=== PATIENT | female | born 1995 | race Caucasian/White ===

== ENCOUNTER → 2024-11-02 10:13 | Outpatient (REF) | payer SELFPAY ==
--- OUTSIDE RECORDS SUMMARY | 2024-09-05 08:00 | XMS_ITS | Encounter Summary ---
Author Organization Healthcare Address [address] [place] [address] Care Team Providers Care Green Promotions Specialist Name Role Phone Karen Lopez APRN Primary Care Provider Encounter Details Date Type Department Care Team (Late st Contact Info) Description 09/05/2024 8:00 AM EDT [facility] [address], [address] [place] [address] Basil Diaz MD [address] [facility] [address] [place] [address] Thyroglossal duct cyst (Primary Dx); Abnormal ultrasound of neck Social History Tobacco Use Types Packs/Day Years Used Date Smoking Tobacco: Never Passive Smoke Exposure: Never Smokeless Tobacco: Never Alcohol Use Standard Drinks/Week Comments Not Currently 0 (1 standard drink = 0.6 oz pur e alcohol) Rare occasion; once a year Humiliation, Afraid, Rape, and Kick questionnair e Answer Date Recorded Within the last year, have y ou been afraid of your partner or ex-partner? No 05/05/2024 Within the last year, have y ou been humiliated or emotionally abused in other ways by your partner or ex-partner? No Within the last year, have y ou been kicked, hit, slapped, or otherwise physically hurt by your partner or ex-partner? No 05/05/2024 Within the last year, have y ou been raped or forced to have any kind of sexual activity by your partner or ex-partner? No 05/05/2024 PHQ-2 Answer Date Recorded Patient Health Questionnaire-2 Score 0 05/24/2024 Hunger Vital Sign Answer Date Recorded Within the past 12 months, y ou worried that your food would run out before you got the money to buy more. Never true 05/05/19 25 Within the past 12 months, t he food you bought just didn't last and you didn't have money to get more. Never true 05/05/2024 PRAPARE - Transportation Answer Date Re corded In the past 12 months, has l ack of transportation kept you from medical appointments or from getting medications? No 04/08 In the past 12 months, has l ack of transportation kept you from meetings, work, or from getting things needed for daily living? No 05/05/2024 Housing Stability Vital Sign Answer Marcos e Recorded In the last 12 months, was t here a time when you were not able to pay the mortgage or rent on time? No 09/07/2023 In the last 12 months, how many places have you lived? 2 09/07/2023 In the last 12 months, was t here a time when you did not have a steady place to sleep or slept in a alf (including now)? No 09/07/2023 PHQ-9 Answer Date Recorded Patient Health Questionnaire-9 Score 0 05/24/2024 Housing Stability Vital Sign Answer Marcos e Recorded In the last 12 months, was t here a time when you were not able to pay the mortgage or rent on time? No 05/05/2024 In the past 12 months, how m any times have you moved where you were living? 0 05/05/2024 At any time in the past 12 m [facility], were you homeless or living in a alf (including now)? No 05/05/2024 CAGE ASSESSMENT Answer Date Recorded Cage unable to access Not on file 08/07/2022 Maximum number of drinks you had on a given occasion in the last month? 0 drinks 08/07/2022 How many alcoholic Beverages do you typically drink in a week? 0 - 7 per week 08/07/2022 Have you ever felt you should CUT down on your d rinking? 0 08/07/2022 Have you been ANNOYED by peo ple criticizing your drinking? 0 08/07/2022 Have you felt GUILTY about your drinking? 0 08/07/2022 Have you had a drink first t jack in the morning ([employer]) to steady your nerves or to get rid of a hangover? 0 08/07/2022 CAGE Questionnaire Score 0 023 Utilities Answer Date Recorded In the past 12 months has th [employer] electric, gas, oil, or water company threatened to shut off services in your home? No 05/05/2024 PHQ-2A Answer Date Recorded Patient Health Questionnaire-2 Score 0 03/10/2023 Comments No Sex and Gender Information Value Date Recorded Sex Assigned at Female 04/09/2021 1:19 PM EST Legal Sex Female 8:38 PM EDT Gender Identity Female 04/09/2021 1:19 PM EST Sexual Orientation Straight 04/09/2021 1: 19 PM EST documented as of this encounter Miscellaneous Notes * Progress Notes - Basil Diaz MD - 09/05/2024 8:00 AM EDT Dear No ref. provider found, I had the pleasure of seeing Ms. Huber Avery in my Head and Neck clinic at the [facility]. As you know, Ms. Huber Avery is a very pleasant 29 y.o. patient who was kindly sent to my clinic in consultation for evaluation and management of her submental mass demonstrated on most recent ultrasound. We discussed at her last visit that her findings were suggestive of a thyroglossal duct cyst and planned for imaging. 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 Today she reports no other significant updates to her personal or health history. She knows that her lesion has not changed. She continues to deny significant significant symptom burden related to this lesion. Recent thyroid function tests were normal. 03/07/2024: Present for follow up 6 days s/p maykel. Overall doing well. Denies dysphonia/dysphagia. Drain remains in place with SS output. 04/18/2023: Presenting to clinic for follow up now 6 weeks s/p maykel. 09/05/2024: Presents to clinic for follow up via telemedicine. Indicates she is overall doing well and has no complaints today. Is happy with the appearance of the neck incision. Radiographs: - CT scan of the neck (09/01/2024): IMPRESSION: Postsurgical changes of thyroglossal duct cyst resection without evidence of residual or recurrent cyst. - CT scan of the chest: . N/A - PET CT scan: . N/A - Ultrasound of the thyroid: In the submental region, at and superior to the hyoid bone in the midline, there is a solid-appearing nodule measuring 2.3 centimeters sagittal x 1.3 centimeter AP x 2.5 cm transverse (series 10). This is not visualized on the prior examination from 02/06/2022 but this same level may not have been imaged on that exam. This is visualized on prior examination from 10/31/2019 (series R4: 3), now appears larger, on the 10/31/2019 exam and measured about 2.0 x 1.1 cm on transverse imaging. I independently reviewed the images and discussed them with the patient. I do agree with the interpretation. Surgeries: - Maykel (03/01/24) Pathology: - (03/01/24) Final Diagnosis A. CYST, MAYKEL PROCEDURE: - THYROGLOSSAL DUCT CYST. Allergies: No Known Allergies Past medical history: As in history of present illness Past Medical History: Diagnosis Date Abnormal Pap smear of cervix 2021 Anxiety 2019 went to ED for a panic attack Cold sore 10/2023 Depression 2017 Encounter for insertion of intrauterine contraceptive device Encounter for insertion of mirena IUD Exercise tolerance finding 02/22/2024 Can climb 2 flights of stairs w/o SOA Morbid obesity with BMI of 50.0-59.9, adult (CMS/HCC) 02/22/2024 Obesity Other chest pain 05/14/2023 Personal history of other complications of , childbirth and the puerperium History of depression Sleep apnea, obstructive Uses CPAP 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 Past surgical history: no pertinent PSHX Past Surgical History: Procedure Laterality Date ROOT CANAL 2010 SKIN BIOPSY UMBILICAL HERNIA REPAIR WISDOM TOOTH EXTRACTION N/A wisdom tooth extraction from [employer] Family history: reviewed and noncontributory Family History Problem Relation Name Age of Onset Rheum arthritis Mother Malgorzata Hypertension Mother Malgorzata Rheumatologic disease Mother Malgorzata Hypertension Father Rob Diabetes Father Rob Stroke Father Rob Depression Sister Jaquelin Avery Depression Sister Guillermina Antunezuitt Depression Maternal Grandmother Ly [place] Heart disease Maternal Grandmother Ly [place] Glaucoma Maternal Grandmother Ly [place] Heart disease Maternal Grandfather Desmond Ingram Diabetes Paternal Grandmother Bri Avery Depression Mother's Sister Marya Jenkins Anxiety disorder Other Cardiac disorder Other Depression Other Diabetes Other Endometriosis Other Hypertension Other Stomach cancer Other Hyperlipidemia Other Cancer Father's Brother Prostate cancer Cancer Mother's Brother Stomach cancer Anesthesia problems Neg Hx Social history: Social Drivers of Health Food Insecurity: No Food Insecurity (05/05/2024) Hunger Vital Sign Worried About Running Out of Food in the Last Year: Never true Ran Out of Food in the Last Year: Never true Alcohol Use: Low Risk (08/07/2022) CAGE ASSESSMENT Cage unable to access: Not on file Cage max number of drinks: 0 drinks Cage Beverages a week: 0 - 7 per week Cage Questionnaire cut down: 0 Cage questionnaire annoyed: 0 Cage questionnaire guilty: 0 Cage questionnaire eye bakery assistant: 0 Cage Overall score: 0 Housing Stability: Low Risk (05/05/2024) Housing Stability Vital Sign Unable to Pay for Housing in the Last Year: No Number of Times Moved in the Last Year: 0 Homeless in the Last Year: No Tobacco Use: Low Risk (06/14/2024) Patient History Smoking Tobacco Use: Never Smokeless Tobacco Use: Never Passive Exposure: Never Recent Concern: Tobacco Use - Medium Risk (05/18/2024) Patient History Smoking Tobacco Use: Never Smokeless Tobacco Use: Never Passive Exposure: Current Transportation Needs: No Transportation Needs (05/05/2024) PRAPARE - Transportation Lack of Transportation (Medical): No Lack of Transportation (Non-Medical): No Depression: Not at risk (05/24/2024) PHQ-2 PHQ-2 Score: 0 Utilities: Not At Risk (05/05/2024) Utilities Threatened with loss of utilities: No Stress: Not on file Intimate Partner Violence: Not At Risk (05/05/2024) Humiliation, Afraid, Rape, and Kick questionnaire Fear of Current or Ex-Partner: No Emotionally Abused: No Physically Abused: No Sexually Abused: No Physical Activity: Not on file Social Connections: Unknown (01/12/2023) Received from [facility] Support Help with Day-to-Day Activities: Not on file Lonely or Isolated: Not on file Financial Resource Strain: Not on file PHYSICAL EXAMINATION: There were no vitals taken for this visit. General: alert and oriented x3; no acute distress Psychiatric evaluation: Normal mood and affect; pleasant and cooperative. Nasal cavity examination: No visible polyps, masses, or purulence Oral cavity examination: The buccal mucosa, lips, gingiva, retromolar trigone, alveolar ridge, floor of mouth, tongue and palate unremarkable. No visible mass lesions. Oropharynx: Tonsils are unremarkable bilaterally. Neck: Neck incision well-healed. Eyes: Extraocular movements are intact bilaterally. Neurological examination: Cranial nerves II-XII are grossly intact. Skin of the neck and face: no evidence of significant rashes, suspicious appearing nevi or other concerning lesions. Endocrine examination: No palpable thyroid nodules or thyromegaly. Salivary: Bilateral parotid and submandibular glands soft and non-tender to palpation; no palpable masses Respiratory: No increased work of breathing, dyspnea, or use of accessory muscles of respiration Cardiovascular: Regular rate and rhythm; no significant clubbing/cyanosis of extremities Pathology: FNA (11/02/2023): Final Diagnosis MIDLINE NECK MASS, SUPERFICIAL FINE NEEDLE ASPIRATION: - INCONCLUSIVE FINDINGS. - CYST CONTENTS. SEE COMMENT. Final path pending IMPRESSION/PLAN: 28 YO CF initially presenting with TGDC s/p excision on 03/01/25. She is overall doing well with most recent CT demonstrating no evidence of recurrence. She will follow up with me in person in 4 month. I discussed those findings with the patient and I answered her questions to the best of my ability.She verbalized understanding and agreement with the plan. I independently reviewed all the records available to me and summarized my findings in this note. *Digital speech recognition software was used to dictate this note and, despite all efforts to proofread, some dictation errors may occur. If you have any questions, please do not hesitate to contactme. Basil Diaz MD, FACS Coater Operator Ins[employer] Board Head & Neck Surgical Oncology, Thyroid/Parathyroid Surgery, Transoral Robotic Surgery, and Microvascular Reconstruction Department of Otolaryngology - Division of Head & Neck Surgery [facility] - Head[facility] Neck[facility] Res[facility] * Progress Notes - Basil Diaz MD - 09/05/2024 8:00 AM EDT Telehealth Statement Patient Verification Patient identity has been confirmed using name and date of ? Yes Authorizations and Agreements/Telemedicine Consent sent and consent confirmed? Yes Patient Location: Home/Other Patient confirms they are physically located in [place]? Yes If the patient is not physically located in [place], the provider has confirmed with [facility] thatthe provider is authorized to provide services in patient's stated location? N/A Provider Location: [facility] facility Audio and video or audio only? Audio only Total visit time: 30 minutes documented in this encounter Plan of Treatment Upcoming Encounters Date Type Department Care Team (Late st Contact Info) Description 11/28/2024 2:20 PM EDT Office Visit [facility] [address] [place] [address] Pastor Hill MD [address] [place] [address] 12/28/2024 11:00 AM EDT Office Visit [facility] [address] [place] [address] Eryn Doshi APRN [address] [place] [address] documented as of this encounter Visit Diagnoses Diagnosis Thyroglossal duct cyst- Primary Congenital anomalies of other endocrine glands Abnormal ultrasound of neck documented in this encounter Additional Health Concerns Assessment Noted Time PHQ-9 Depression Total Score: 0 05/24/19 10:57 AM EST A fall risk assessment has been complete d for the patient 05/10/2024 11:31 AM EST A Body Mass Index follow-up plan has been documented for the patient 06/14/2024 11:25 AM EDT documented as of this encounter Care Teams Green Promotions Specialist Relationship Specialty Start Date End Date Karen Lopez APRN [address] [address] PCP - General Family Medicine 09/05/24 documented as of this encounter
--- OUTSIDE RECORDS SUMMARY | 2024-10-14 14:30 | XMS_ITS | Encounter Summary ---
Author Organization [facility] Address [address] [place] [address] Care Team Providers Care Marine Chronometer Assembler Name Role Phone Karen Lopez APRN Primary Care Provider [phone] Reason for Visit * Reason Comments Contraception IUD exchange * Other Medical (Routine) - Closed Specialty Diagnoses / Procedures Referred By Nithin reina Referred To Contact Diagnoses Encounter for IUD removal and reinsertion Procedures Insert IUD Pina Stewart APRN [address] [facility] [address] [place] [address] Phone: tel: fax: Referral ID Status Reason Start Date Expiration Date Visits Re quested Visits Authorized [id number] Closed 10/06/2024 04/07/2026 1 1 Encounter Details Date Type Department Care Team (Late st Contact Info) Description 10/14/2024 2:30 PM EDT Office Visit Medical Office Building Obstetrics and Gynecology [address] , [address] [place] [address] Pina Stewart APRN [address] [facility] [address] [place] [address] Encounter for IUD removal and reinsertion (Primary Dx) Social History Tobacco Use Types Packs/Day Years Used Date Smoking Tobacco: Never Passive Smoke Exposure: Never Smokeless Tobacco: Never Tobacco Cessation:Counseling Given: No Alcohol Use Standard Drinks/Week Comments Not Currently [...] Date Recorded Patient Health Questionnaire-2 Score 0 10/14/2024 Hunger Vital Sign Answer Date Recorded Within [...] place to sleep or slept in a fdc (including now)? No 09/07/2023 PHQ-9 Answer Date Recorded Patient Health Questionnaire-9 Score 0 10/14/2024 Housing Stability Vital Sign Answer Marcos e Recorded In the last 12 months, was t here a time when you were not able to pay the mortgage or rent on time? No 05/05/2024 In the past 12 months, how m any times have you moved where you were living? 0 05/05/2024 At any time in the past 12 m [facility], were you homeless or living in a fdc (including now)? No 05/05/2024 CAGE ASSESSMENT Answer [...] drink first t jack in the morning (EYE-LIME KILN WORKER) to steady your nerves or to get rid of a hangover? 0 08/07/2022 CAGE Questionnaire Score 0 023 Utilities Answer Date Recorded In the past 12 months has th e electric, gas, oil, or water company threatened [...] PM EST documented as of this encounter Last Filed Vital Signs Vital Sign Reading Time Taken Comments Blood Pressure 127/81 10/14/2024 1:06 PM EDT Pulse 110 10/14/2024 1:06 PM EDT Temperature 36.6 C (97.8 F) 10/14/2024 1:06 PM EDT Respiratory Rate 18 10/14/2024 1:06 PM EDT Oxygen Saturation 99% 10/14/2024 1:06 PM EDT Inhaled Oxygen Concentration - - Weight 133 kg (293 lb) 10/14/2024 1:06 PM EDT Height 154.9 cm (5' 1 ) 10/14/2024 1:06 PM EDT Body Mass Index 55.36 10/14/2024 1:06 PM EDT documented in this encounter Functional Status * Over the past 2 weeks, how often have you been bothered by any of the following problems? Question Answer Date of Assessment Author Little interest or pleasure in doing things Not at all 10/14/2024 1:07 PM NATALEET Mable Amaya Feeling down, depressed, or hopeless Not at all 10/14/2024 1:07 PM EDT Mable Amaya Patient Health Questionnaire-2 Score 0 10/14/2024 1:07 PM EDT Amada Amaya * Question Answer Date of Assessment Author Trouble falling or staying asleep, or sleeping too much Not at all 10/14/2024 1:07 PM NATALEET Tori Islas Feeling tired or having little energy Not at all 10/14/2024 1:07 PM NATALEET Mable Amaya Poor appetite or overeating Not at all 10/14/2024 1: 07 PM NATALEET Tori Amaya Feeling bad about yourself - or that you are a failure or have let yourself or your family down Not at all 10/14/2024 1:07 PM NATALEET Mable Amaya Trouble concentrating on things, such as reading the newspaper or watching television Not at all 10/14/2024 1:07 PM NATALEET Mable Amaya Moving or speaking so slowly that other people could have noticed? Or the opposite - being so fidgety or restless that you have been moving around a lot more than usual. Not at all 10/14/2024 1:07 PM NATALEET Mable Amaya Thoughts that you would be better off or hurting yourself in some way Not at all 10/14/2024 1:07 PM NATALEET Pratibha Amaya Patient Health Questionnaire-9 Score 0 10/14/2024 1:07 PM EDT Amada Amaya * If you checked off any problems on this questionnaire so far, Question Answer Date of Assessment Author How difficult have these problems made it for you to do your work, take care of things at home, or get along with other people? Not difficult at all 10/14/2024 1:07 PM Pratibha Rainey documented as of this encounter Miscellaneous Notes * Progress Notes - Pina Stewart Prabha, TURNTABLE ENGINEER - 10/14/2024 2:30 PM EDTAssociated Order(s): Insert IUD Pre-Procedure Diagnose(s): Encounter for IUD removal and reinsertion Post-Procedure Diagnose(s): Encounter for IUD removal and reinsertion Gynecology Procedure Note Chief Complaint Patient presents with Contraception IUD exchange Subjective 29 yo female here for IUD replacement. Currently has Mirena, desires to continue. Visit Vitals BP 127/81 Pulse 110 Temp 36.6 ??C (97.8 ??F) Resp 18 Ht 1.549 m (5' 1 ) Wt 133 kg (293 lb) SpO2 99% BMI 55.36 kg/m?? OB Status IUD Smoking Status Never BSA 2.39 m?? Physical Exam Constitutional: General: She is awake. She is not in acute distress. Appearance: Normal appearance. She is well-developed. Genitourinary: Urethral meatus normal. No lesions in the vagina. Right Labia: No rash, tenderness or lesions. Left Labia: No tenderness, lesions or rash. No vaginal discharge, erythema, tenderness, bleeding or ulceration. No cervical discharge, friability, lesion or polyp. IUD strings visualized. Uterus is not enlarged or tender. No uterine mass detected. Pelvic exam was performed with patient in the lithotomy position. HENT: Head: Normocephalic. Pulmonary: Effort: Pulmonary effort is normal. Neurological: General: No focal deficit present. Mental Status: She is alert and oriented to person, place, and time. Gait: Gait is intact. Psychiatric: Mood and Affect: Mood and affect normal. Speech: Speech normal. Behavior: Behavior normal. Behavior is cooperative. Vitals reviewed. Exam conducted with a business affairs manager present (tori). Patient ID: Huber Avery is a 29 y.o. female. Encounter Diagnosis Name Primary? Encounter for IUD removal and reinsertion Yes Insert IUD Date/Time: 10/14/2024 1:56 PM Performed by: Pina Stewart APRN Authorized by: Pina Stewart APRN Procedure: IUD removal and insertion Consent obtained by patient, parent, or legal power of plywood patcher - including discussion of procedurerisks and benefits, patient questions answered, and patient education provided: yes Other reason for removal: , breakthrough bleeding Strings visualized: yes IUD grasped by forceps: yes Performed with ultrasound guidance: no IUD removed: yes Removed without complications: yes IUD intact: yes risk: reasonably certain the patient is not Pre-Medications: Ibuprofen at home Immediately prior to procedure a time out was called: yes Pelvic exam performed: yes Speculum placed in vagina: yes Cervix cleaned and prepped: yes (betadine) Tenaculum/Allis/Ring Forceps applied to cervix: yes (allis) Anesthesia used: no Uterus sound depth (cm): 7.5 IUD inserted without complications: yes (mirena) Strings trimmed to (cm): 3 Patient tolerated procedure well: yes Inserted with ultrasound guidance: no Transvaginal sono confirmed fundal placement: no Estimated blood loss (mL): 0 Intended removal date: 8 years Insertion comments: - Good hemostasis at allis site. - Lot [id number] Exp August 2026 [facility] 51691-073-42 Assessment & Plan Encounter for IUD removal and reinsertion - R/b/se of Mirena reviewed and UPT was negative. IUD was removed intact. New Mirena inserted without complication. Precautions and informational handout given. Orders: Insert IUD Remove IUD POCT Urine levonorgestrel (Mirena) 20 MCG/DAY IUD * Franklyn Soto - Pina Stewart APRN - 10/14/2024 2:01 PM EDT Images from the original note were not included. [id number] Control: IUD (Intrauterine Device) The IUD (intrauterine device) is small, flexible, and T-shaped. A trained doctor places it in the uterus. The IUD is one of the most effective control methods. It's also reversible. This means it can be removed at any time by a trained doctor. New IUDs are safer and don't have the same risks as older types of IUDs. rates Talk to your doctor about the effectiveness of this control method. Types of IUDs IUD insertion is done in the doctor?s office. Two types of IUDs are available: ?? The copper IUD releases a small amount of copper into the uterus. The copper makes it harder forsperm to reach the egg. The device works for about 10 years. ?? The progestin IUD releases a hormone called progestin. It causes changes in the uterus to help prevent . The device works for 3 to 8 years, depending on which device is chosen. It may be recommended if you have anemia or heavy and painful periods. IUDs have thin strings that hang from the opening of the uterus into the vagina. This lets you check that the IUD stays in place. Things to know about IUDs ?? IUDs can be used if you have never been or if you have a history of sexually transmitted infections (STIs) or tubal . ?? It won't move from the uterus to any other part of the body. ?? There is a slight risk of the device coming out of the vagina (expulsion). ?? It may not work if you have an abnormally shaped uterus. ?? A copper IUD may cause heavier periods and cramping. ?? A progestin IUD may cause light periods or no periods at all (irregular bleeding or spotting is possible and normal during the first 3 to 6 months). ?? If you get a sexually transmitted infection with an IUD in place, symptoms may be more severe. What to report to your doctor Be sure your doctor knows if you have: ?? A sexually transmitted infection (STI) or possible STI. ?? Liver problems. ?? Blood clots (for progestin IUD only). ?? Breast cancer or a history of breast cancer (progestin IUD only). Last Reviewed Date: 2024 00:00:00 ?? [id number] [employer]. All rights reserved. This information is not intended as a substitute for professional medical care. Always follow your healthcare professional's instructions. documented in this encounter Plan of Treatment Upcoming Encounters Date Type Department Care Team (Late st Contact Info) Description 11/28/2024 2:20 PM EDT Office Visit [facility] Internal Medicine [address], [address] [place] [address] Pastor Hill MD [address] [place] [address] 12/28/2024 11:00 AM EDT Office Visit [facility] Sleep Disorder Center [address], [address] [place] [address] Eryn Doshi APRN [address] [place] [address] documented as of this encounter Procedures Procedure Name Priority Date/Time Associated Diagnosis Comments CT REMOVE INTRAUTERINE DEVICE Routine 10/14/2024 1:56 PM EDT Encounter for IUD removal and reinsertion CT INSERT INTRAUTERINE DEVICE Routine 10/14/2024 1:56 PM EDT Encounter for IUD removal and reinsertion POCT , URINE Routine 10/14/2024 1:13 PM EDT Encounter for IUD removal and reinsertion documented in this encounter Results * CT INSERT INTRAUTERINE DEVICE, CT REMOVE INTRAUTERINE DEVICE (10/14/2024 1:56 PM EDT) Narrative Pina Stewart APRN - 10/14/2024 1:56 PM EDT Pina Stewart APRN 10/14/2024 2:02 PM Insert IUD Date/Time: 10/14/2024 1:56 PM Performed by: Pina Stewart APRN Authorized by: Pina Stewart APRN Procedure: IUD removal and insertion Consent obtained by patient, parent, or legal power of plywood patcher - including discussion of procedure risks and benefits, patient questions answered, and patient education provided: yes Other reason for removal: , breakthrough bleeding Strings visualized: yes IUD grasped by forceps: yes Performed with ultrasound guidance: no IUD removed: yes Removed without complications: yes IUD intact: yes risk: reasonably certain the patient is not Pre-Medications: Ibuprofen at home Immediately prior to procedure a time out was called: yes Pelvic exam performed: yes Speculum placed in vagina: yes Cervix cleaned and prepped: yes (betadine) Tenaculum/Allis/Ring Forceps applied to cervix: yes (allis) Anesthesia used: no Uterus sound depth (cm): 7.5 IUD inserted without complications: yes (mirena) Strings trimmed to (cm): 3 Patient tolerated procedure well: yes Inserted with ultrasound guidance: no Transvaginal sono confirmed fundal placement: no Estimated blood loss (mL): 0 Intended removal date: 8 years Insertion comments: - Good hemostasis at allis site. - Lot [id number] Exp August 2026 [facility] [id number] us Pina Stewart APRN IN CLINIC/BEDSIDE ORDERABLES Final Result * POCT Urine (10/14/2024 1:13 PM EDT) Urine - Point of Care Negative Negative - women after 7 weeks gestation and dilute urine (specific gravity <1.010) may have false negative results. Plasma HCG testing is recommended. Test performed at Point of Care. INTERNAL QC OK, PREG URINE ok KIT LOT NUMBER, PREG URINE [id number] KIT EXPIRATION DATE, PREG URINE 12/31/2025 Urine Urine specimen obtained by clean catch procedure / Unknown 10/14/2024 1:13 PM EDT us Pina Stewart APRN POINT OF CARE TEST ENTER/EDIT ORDERABLES Final Result documented in this encounter Visit Diagnoses Diagnosis Encounter for IUD removal and reinsertion- Primary documented in this encounter Administered Medications Inactive Administered Medications - up to 3 most recent administrations Medication Order MAR Action Action Date Dose Rate Site levonorgestrel (Mirena) 20 MCG/DAY IUD Intrauterine, Once, 1 dose, On Thu10/14/24 at 1400, RoutineIndications:Encounter for IUD removal and reinsertion Given 10/14/2024 1:54 PM EDT 1 each documented in this encounter Additional Health Concerns Assessment Noted Time PHQ-9 Depression Total Score: 0 10/15/19 1:07 PM EDT A fall risk assessment has been complete d for the patient 05/10/2024 11:31 AM EST A Body Mass Index follow-up plan has been documented for the patient 10/14/2024 2:02 PM EDT documented as of this encounter Care Teams Marine Chronometer Assembler Relationship Specialty Start Date End Date Karen Lopez [facility]N [address] [facility] [address] [address] PCP - General Family Medicine 09/05/24 documented as of this encounter
--- OUTSIDE RECORDS SUMMARY | 2024-11-02 10:16 | XMS_ITS | Encounter Summary ---
Author Organization [facility] Address [address] [place] [address] Care Team Providers Care Grades 7 8 Tutor Name Role Phone Karen Lopez APRN Primary Care Provider Encounter Details Date Type Department Care Team (Late st Contact Info) Description 10/06/2024 Telephone Medical Office Building Obstetrics and Gynecology [address] [facility] [place] [address] Tori Amaya [facility] [address] [place] [address] Social History Tobacco Use Types Packs/Day Years [...] place to sleep or slept in a prison (including now)? No 09/07/2023 PHQ-9 Answer Date [...] any time in the past 12 m [facility], were you homeless or living in a prison (including now)? No 05/05/2024 CAGE ASSESSMENT Answer [...] drink first t jack in the morning (EYE-ONCOLOGY TECHNICIAN) to steady your nerves or to get [...] PM EST documented as of this encounter Plan of Treatment Upcoming Encounters Date Type Department Care Team (Late st Contact Info) Description 11/28/2024 2:20 PM EDT Office Visit [facility] [address] Internal Medicine [address] [place] [address] Pastor Hill MD [address] [place] [address] 12/28/2024 11:00 AM EDT Office Visit [facility] Sleep Disorder Center [address] [place] [address] Eryn Doshi APRN [address] [place] [address] documented as of this encounter Visit Diagnoses Not on filedocumented in this encounter Additional Health Concerns Assessment Noted Time PHQ-9 Depression Total Score: 0 05/24/19 10:57 AM EST A fall risk assessment has been complete d for the patient 05/10/2024 11:31 AM EST A Body Mass Index follow-up plan has been documented for the patient 06/14/2024 11:25 AM EDT documented as of this encounter Care Teams Grades 7 8 Tutor Relationship Specialty Start Date End Date Karen Lopez APRN [address] [facility] [[email or web address] [address] [place] [address] PCP - General Family Medicine 09/05/24 documented as of this encounter
--- OUTSIDE RECORDS SUMMARY | 2024-11-02 10:16 | XMS_ITS | Encounter Summary ---
Author Organization [facility] Address [address] [place] [address] Care Team Providers Care Hand Brush Filler Name Role Phone Mona Abbott APRN, BRODERICK Primary Care Provide r Yakelin Cruz APRN Primary Care Provider [phone] Pastor Hill MD Primary Care Provider [phone] Cesar Yee APRN Primary Care Provider + [phone] Rosemarie Gaona APRN Primary Care Provider Karen Lopez APRN Primary Care Provider [phone] Encounter Details Date Type Department Care Team (Late st Contact Info) Description 11/30/2019 [facility] [address] [place] [address] Dental, Provider, DDS [address] [place] [address] Social History Tobacco Use Types Packs/Day Years Used Date Smoking Tobacco: Never Assessed Comments Unknown Sex and Gender Information Value Date Recorded Sex Assigned at Female 04/09/2021 1:19 PM EST Legal Sex Female 8:38 PM EDT Gender Identity Female 04/09/2021 1:19 PM EST Sexual Orientation Straight 04/09/2021 1: 19 PM EST documented as of this encounter Plan of Treatment Upcoming Encounters Date Type Department Care Team (Late st Contact Info) Description 11/28/2024 2:20 PM EDT Office Visit [facility] Internal Medicine [address] [place] [id number] Pastor Hill MD [address] [place] [address] 12/28/2024 11:00 AM EDT Office Visit [facility] Sleep Disorder Center [address] [place] [address] Eryn Doshi APRN [address] [place] [address] documented as of this encounter Visit Diagnoses Not on filedocumented in this encounter Additional Health Concerns Infection Onset Date Last Indicated Resolved Time COVID-19 Rule-Out 07/09/2021 07/09/2021 07/09/2021 8:18 PM EDT COVID-19 Rule-Out 12/12/2021 12/12/2021 12/12/2021 5:13 PM EDT COVID 19 (Confirmed) 12/12/2021 12/12/2021 022 5:23 AM EDT COVID-19 Rule-Out 08/01/2022 08/01/2022 08/01/2022 9:35 PM EDT documented as of this encounter Care Teams Hand Brush Filler Relationship Specialty Start Date End Date Mona Abbott, STAFF NURSE ICU RESOURCE TEAM, DNP [address] [facility] [place] [address] PCP - General 08/17/20 01/15/22 Yakelin Cruz, STAFF NURSE ICU RESOURCE TEAM [address] [place] [address] PCP - General Internal Medicine 01/16/22 12/22/22 Pastor Hill MD [address] [place] [phone] PCP - General Internal Medicine 12/23/22 09/07/23 Cesar Yee, STAFF NURSE ICU RESOURCE TEAM [address] [place] [address] PCP - General 09/08/23 07/02/24 Rosemarie [place], BRYCE [address] [place] [address] PCP - General Family Medicine 07/03/24 09/04/24 Karen Lopez, STAFF NURSE ICU RESOURCE TEAM [address] [place] [address] PCP - General Family Medicine 09/05/24 documented as of this encounter
--- OUTSIDE RECORDS SUMMARY | 2024-11-02 10:16 | XMS_ITS | Encounter Summary ---
Author Organization [facility] Address [address] [place] [address] Care Team Providers Care Gang Supervisor Name Role Phone Karen Lopez APRN Primary Care Provider [phone] Encounter Details Date Type Department Care Team (Latest Contact Info) Description 10/13/2024 Travel Social History Tobacco Use Types Packs/Day Years [...] place to sleep or slept in a snf (including now)? No 09/07/2023 PHQ-9 Answer Date [...] any time in the past 12 m [facility], were you homeless or living in a snf (including now)? No 05/05/2024 CAGE ASSESSMENT Answer [...] drink first t jack in the morning (EYE-BAKER OPERATOR AUTOMATIC) to steady your nerves or to get [...] Description 11/28/2024 2:20 PM EDT Office Visit [facility] Internal Medicine [address] [place] [phone] Pastor Hill MD [address] [place] [address] 12/28/2024 11:00 AM EDT Office Visit [facility] Sleep Disorder Center [address] [place] [address] Eryn Doshi APRN [address] [place] [address] documented as of this encounter [...] documented as of this encounter Care Teams Gang Supervisor Relationship Specialty Start Date End Date Karen Lopez APRN [address] [place] [address] PCP - General Family Medicine 09/05/24 documented as of this encounter
--- OUTSIDE RECORDS SUMMARY | 2024-11-02 10:16 | XMS_ITS | Encounter Summary ---
Author Organization [facility] Address [address] [place] [address] Care Team Providers Care Eyelet Riveter Name Role Phone Mona Abbott APRN, BRODERICK Primary Care Provide r Yakelin Cruz APRN Primary Care Provider [phone] Pastor Hill MD Primary Care Provider [phone] Cesar Yee APRN Primary Care Provider + [phone] Rosemarie Gaona APRN Primary Care Provider Karen Lopez ORTHODONTIC LAB TECHNICIAN Primary Care Provider + [phone] Reason for Visit * Reason Comments Med Refill Encounter Details Date Type Department Care Team ([facility] Contact Info) Description 08/08/2021 Refill Medical Office Building Obstetrics and Gynecology [address], [address] [place] [address] Pina Stewart APRN [address] [place] [address] Oral herpes simplex infection Social History Tobacco Use Types Packs/Day Years Used Date Smoking Tobacco: Never Smokeless Tobacco: Never Alcohol Use Standard Drinks/Week Comments Yes 0 (1 standard drink = 0.6 oz pur e alcohol) PHQ-2 Answer Date Recorded Patient Health Questionnaire-2 Score 0 05/22/2021 Comments Unknown Sex and Gender Information Value Date Recorded Sex Assigned at Female 04/09/2021 1:19 PM EST Legal Sex Female 8:38 PM EDT Gender Identity Female 04/09/2021 1:19 PM EST Sexual Orientation Straight 04/09/2021 1: 19 PM EST COVID-19 Exposure Response Date Recorded In the last month, have you been in contact with someone who was confirmed or suspected to have Coronavirus / COVID-19? No / Unsure 07/09/2021 11:17 AM EDT documented as of this encounter Miscellaneous Notes * Telephone Encounter - Shantel Donovan MA - 08/09/2021 6:16 AM EDT Refills were sent in. documented in this encounter Plan of Treatment Upcoming Encounters Date Type Department Care Team (Late st Contact Info) Description 11/28/2024 2:20 PM EDT Office Visit [facility] Internal Medicine [address], [address] [place] [phone] Pastor Hill MD [address] [place] [address] 12/28/2024 11:00 AM EDT Office Visit [facility] Sleep Disorder Center [address], [address] [place] [address] Eryn Doshi APRN [address] [place] [address] documented as of this encounter Visit Diagnoses Diagnosis Oral herpes simplex infection Herpetic gingivostomatitis documented in this encounter Additional Health Concerns Infection Onset Date Last Indicated Resolved Time COVID-19 Rule-Out 12/12/2021 12/12/2021 12/12/2021 5:13 PM EDT COVID 19 (Confirmed) 12/12/2021 12/12/2021 022 5:23 AM EDT COVID-19 Rule-Out 08/01/2022 08/01/2022 08/01/2022 9:35 PM EDT documented as of this encounter Care Teams Eyelet Riveter Relationship Specialty Start Date End Date Mona Abbott, ORTHODONTIC LAB TECHNICIAN, DNP [address] [place] [address] PCP - General 08/17/20 01/15/22 Yakelin Cruz, ORTHODONTIC LAB TECHNICIAN [address] [place] [address] PCP - General Internal Medicine 01/16/22 12/22/22 Pastor Hill MD [address] [place] [address] PCP - General Internal Medicine 12/23/22 09/07/23 Cesar Yee, ORTHODONTIC LAB TECHNICIAN [address] [place] [address] PCP - General 09/08/23 07/02/24 Rosemarie Gaona, ORTHODONTIC LAB TECHNICIAN [address] [place] [address] PCP - General Family Medicine 07/03/24 09/04/24 Karen Lopez, ORTHODONTIC LAB TECHNICIAN [address] [place] [address] PCP - General Family Medicine 09/05/24 documented as of this encounter
--- OUTSIDE RECORDS SUMMARY | 2024-11-02 10:16 | XMS_ITS | Encounter Summary ---
Author Organization Healthcare Address [address] [place] [address] Care Team Providers Care Station Baggage Porter Name Role Phone Karen Lopez APRN Primary Care Provider [phone] Encounter Details Date Type Department Care Team (Latest Contact Info) Description 10/14/2024 Travel Social History Tobacco Use Types Packs/Day [...] place to sleep or slept in a senior living (including now)? No 09/07/2023 PHQ-9 Answer Date [...] any time in the past 12 m [facility], were you homeless or living in a senior living (including now)? 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 Or the opposite - being so fidgety or restless that you have been moving around a lot more than usual. Not at all 10/14/2024 1:07 PM EDT Mable Amaya Thoughts that you would be better off or hurting yourself in some way Not at all 10/14/2024 1:07 PM EDT Pratibha Amaya Patient Health Questionnaire-9 Score 0 10/14/2024 1:07 PM EDT Amada Amaya * If you checked off any problems on this questionnaire so far, Question Answer Date of Assessment Author How difficult have these problems made it for you to do your work, take care of things at home, or get along with other people? Not difficult at all 10/14/2024 1:07 PM EDT Pratibha Amaya documented as of this encounter Plan of Treatment Upcoming Encounters Date Type Department Care Team (Late st Contact Info) Description 11/28/2024 2:20 PM EDT Office Visit [facility] Internal Medicine [address] [place] [address] Pastor Hill MD [address] [place] [address] 12/28/2024 11:00 AM EDT Office Visit [facility] Sleep Disorder Center [address] [place] [address] Eryn Doshi APRN [address] [place] [address] documented as of this encounter [...] documented as of this encounter Care Teams Station Baggage Porter Relationship Specialty Start Date End Date Karen Lopez APRN [address] [facility] [address] [place] [address] PCP - General Family Medicine 09/05/24 documented as of this encounter
--- OUTSIDE RECORDS SUMMARY | 2024-11-02 10:16 | XMS_ITS | Encounter Summary ---
Author Organization Healthcare Address [address] [place] [address] Care Team Providers Care Clerk Typist Name Role Phone Karen Lopez APRN Primary Care Provider Encounter Details Date Type Department Care Team (Late st Contact Info) Description 11/01/2024 Orders Only [facility] Medicine [address], [address] [place] [address] Karen Lopez APRN [address] [place] [address] Recurrent major depressive disorder, in partial remission (CMS/HCC); Recurrent cold sores Social History Tobacco Use Types Packs/Day Years [...] place to sleep or slept in a longterm (including now)? No 09/07/2023 PHQ-9 Answer Date [...] any time in the past 12 m [facility], were you homeless or living in a longterm (including now)? No 05/05/2024 CAGE ASSESSMENT Answer [...] drink first t jack in the morning (EYE-FRONT DESK RECEPTIONIST) to steady your nerves or to get [...] PM EDT Office Visit [facility] Internal Medicine [address], [address] [place] [address] Pastor Hill MD [address] [place] [address] 12/28/2024 11:00 AM EDT Office Visit [facility] Sleep Disorder Center [address], [address] [place] [address] Eryn Doshi APRN [address] [place] [address] documented as of this encounter Visit Diagnoses Diagnosis Recurrent major depressive disorder, in partial remission (CMS/HCC) Recurrent cold sores Herpes simplex without mention of complication documented in this encounter Additional Health Concerns Assessment Noted Time PHQ-9 Depression Total Score: 0 10/15/19 25 1:07 PM EDT A fall risk assessment has been complete d for the patient 05/10/2024 11:31 AM EST A Body Mass Index follow-up plan has been documented for the patient 10/14/2024 2:02 PM EDT documented as of this encounter Care Teams Clerk Typist Relationship Specialty Start Date End Date Karen Lopez APRN [address] [address] PCP - General Family Medicine 09/05/24 documented as of this encounter
--- OUTSIDE RECORDS SUMMARY | 2024-11-02 10:16 | XMS_ITS | Clinical Summary ---
Author Organization [facility] Address [address] [place] [address] Care Team Providers Care Military Personnel Specialist Name Role Phone Cuong Tran MD Primary Care Provider [phone] Allergies Active Allergy Reactions Criticality Noted Date Comments Penicillins Rash Low 04/06/2016 Medications docusate sodium (COLACE) 250 MG capsule Take 1 capsule by mouth Daily. 30 capsule 07/04/2016 Active valACYclovir (VALTREX) 500 MG tablet Take 500 mg by mouth Daily. Active Vit-Fe Fumarate-FA ( 27-) 27-1 MG tablet tablet Take by mouth Daily. Active IRON PO Take 1 tablet by mouth 2 (Two) Times a Day. Active ibuprofen (ADVIL,MOTRIN) 600 MG tablet Take 1 tablet by mouth Every 6 (Six) Hours As Needed for Mild Pain . 30 tablet 12/05/2017 Active Active Problems Problem Noted Date Diagnosed Date Spontaneous vaginal delivery 12/05/2017 Morbid obesity with BMI of 45.0-49.9, adult 11/04 Resolved Problems Problem Noted Date Diagnosed Date Resolved Date Currently 12/03/2017 8 Vaginal delivery 12/03/2017 12/05/2017 Uterine size-date discrepanc y in third trimester 11/13/2017 12/05/2017 11/13/2017 12/05/2017 Umbilical hernia without obs truction or gangrene 07/03/2016 12/05/2017 Labor without complication 12/02/2015 0 07/04/2016 Pelvic pain affecting pregna ncy in third trimester, antepartum 11/12/2015 07/04/2016 uterine contractions in third trimester, antepartum 10/28/2015 07/04/2016 contractions 10/28/2015 017 Family History Medical History Relation Name Comments Coronary artery disease Maternal Grandfather Diabetes Paternal Grandmother Relation Name Status Comments Maternal Grandfather Paternal Grandmother Social History Tobacco Use Types Packs/Day Years Used Date Smoking Tobacco: Never Smokeless Tobacco: Never Alcohol Use Standard Drinks/Week Comments No 0 (1 standard drink = 0.6 oz pur e alcohol) Muse Depression Scale Answer Date Recorded Retired Muse Depression Score 0 12/04/2017 Retired EPD Scale: Thought of Harming Self Unrec ognized value 12/04/2017 Abuse Screen Answer Date Recorded Unsafe at Home or Work/School Not on file Feels Threatened by Someone? Not on file 12/2022 Does Anyone Keep You from Co ntacting Others or Doint Things Outside the Home? Not on file 01/12/2023 Physical Sign of Abuse Present Not on file 1 Housing Stability Answer Date Recorded Current Living Arrangements Not on file 12/2022 Potentially Unsafe Housing Conditions Not on saul e 01/12/2023 Family and Community Support Answer Marcos e Recorded Help with Day-to-Day Activities Not on file 01/12/2023 Lonely or Isolated Not on file 01/12/2023 Employment Answer Date Recorded Do you want help finding or keeping work or a christine b? Not on file 01/12/2023 Disabilities Answer Date Recorded Concentrating, Remembering, or Making Decisions Difficulty Not on file 01/12/2023 Doing Errands Independently Difficulty Not on fi le 01/12/2023 Education Answer Date Recorded Help with school or training? Not on file Preferred Language Not on file 01/12/2023 Comments No Sex and Gender Information Value Date Recorded Sex Assigned at Not on file Legal Sex Female 1:02 PM EDT Gender Identity Not on file Sexual Orientation Not on file Last Filed Vital Signs Vital Sign Reading Time Taken Comments Blood Pressure 128/79 12/05/2017 7:00 AM EDT Pulse 87 12/05/2017 7:00 AM EDT Temperature 37.1 C (98.7 F) 12/05/2017 7:00 AM EDT Respiratory Rate 16 12/05/2017 7:00 AM EDT Oxygen Saturation 97% 07/04/2016 8:25 AM EDT Inhaled Oxygen Concentration - - Weight 110 kg (243 lb) 12/03/2017 11:47 AM EDT Height 154.9 cm (5' 1 ) 12/03/2017 11:40 AM EDT Body Mass Index 45.91 12/03/2017 11:40 AM EDT Plan of Treatment Health Maintenance Due Date Last Done Comments Annual Gynecologic Pelvic an d Breast Exam 1993 TDAP/TD VACCINES (1 - Tdap) 2012 PAP SMEAR 2014 ANNUAL PHYSICAL 07/03/2016 HEPATITIS C SCREENING 07/03/2016 COVID-19 Vaccine ( - 2023-2 5 season) 2023 INFLUENZA VACCINE 01/04/2025 Pneumococcal Vaccine 0-49 Aged Out No longer eligible based on patient's age to complete this topic Medical Devices Implanted Type Area Lump Maker Device Identifier Shelf Expiration Date Model / Serial / Lot Mesh 2 1mm 7.5x10cm - [id number] - [id number] Implanted:Qty : 1 on 07/03/2016 by Cuong Enciso MD at [facility] Implant N/A: Umbilical [employer] 07/04/2018 [id number] / [id number] / Insurance Advance Directives * CPR (Attempt to Resuscitate) (Latest Code Status on File) Date Activated Date Inactivated Comments 12/04/2017 1:32 AM 12/05/2017 3:08 PM Question Answer Comments Code Status (Patient has no pulse and is not breathing): CPR (Attempt to Resuscitate) Medical Interventions (Patie nt has pulse or is breathing): Full * CPR (Attempt to Resuscitate) Date Activated Date Inactivated Comments 12/03/2017 12:19 PM 12/04/2017 1:31 AM Question Answer Comments Code Status (Patient has no pulse and is not breathing): CPR (Attempt to Resuscitate) Medical Interventions (Patie nt has pulse or is breathing): Full * Full Code Date Activated Date Inactivated Comments 07/03/2016 3:12 PM 07/04/2016 1:36 PM * Full Code Date Activated Date Inactivated Comments 12/03/2015 8:03 AM 12/05/2015 2:11 PM * Full Code Date Activated Date Inactivated Comments 12/02/2015 8:24 PM 12/03/2015 8:03 AM Care Teams Military Personnel Specialist Relationship Specialty Start Date End Date Cuong Tran MD [address] [place] [address] [place] [address] PCP - General Internal Medicine 07/01/16
--- OUTSIDE RECORDS SUMMARY | 2024-11-02 10:16 | XMS_ITS | Encounter Summary ---
Author Organization [facility] Address [address] [place] [address] Care Team Providers Care Forester Aide Name Role Phone Karen Lopez APRN Primary Care Provider Reason for Referral * Other Medical (Routine) - Closed Specialty Diagnoses / Procedures Referred By Contac t Referred To Contact Diagnoses Encounter for IUD removal and reinsertion Procedures Remove IUD Pina Stewart APRN [address] [address] Phone: tel: fax: Referral ID Status Reason Start Date Expiration Date Visits Re quested Visits Authorized [id number] Closed 10/06/2024 04/07/2026 1 1 * Other Medical (Routine) - Closed Specialty Diagnoses / Procedures Referred By Contwillis t Referred To Contact Diagnoses Encounter for IUD removal and reinsertion Procedures Insert IUD Pina Stewart APRN [address] [facility] [address] [place] [address] Phone: tel: fax: Referral ID Status Reason Start Date Expiration Date Visits Re quested Visits Authorized [id number] Closed 10/06/2024 04/07/2026 1 1 Encounter Details Date Type Department Care Team (Late st Contact Info) Description 10/06/2024 Orders Only Medical Office Building Obstetrics and Gynecology [address] [facility], [address] [place] [address] [place] [address] Encounter for IUD removal and reinsertion (Primary [...] place to sleep or slept in a custodial (including now)? No 09/07/2023 PHQ-9 Answer Date [...] any time in the past 12 m [facility], were you homeless or living in a custodial (including now)? No 05/05/2024 CAGE ASSESSMENT Answer [...] drink first t jack in the morning (EYE-SPOOL CARRIER) to steady your nerves or to get [...] Description 11/28/2024 2:20 PM EDT Office Visit [facility] Internal Medicine [address] [place] [address] Pastor Hill MD [address] [place] [address] 12/28/2024 11:00 AM EDT Office Visit [facility] Sleep Disorder Center [address] [place] [address] Eryn Doshi APRN [address] [place] [address] Scheduled Orders Name Type Priority Associated Diagnoses Orde r Schedule Remove IUD Procedures Routine Encounter for IUD removal and reinsertion 1 Occurrences starting 10/06/2024 until 04/09/2026 documented as of this encounter Results * ME INSERT INTRAUTERINE DEVICE, ME REMOVE INTRAUTERINE DEVICE (10/14/2024 1:56 PM EDT) Narrative Pina Stewart APRN - 10/14/2024 1:56 PM EDT Pina Stewart APRN 10/14/2024 2:02 PM Insert IUD Date/Time: 10/14/2024 1:56 PM Performed by: Pina Stewart APRN Authorized by: Pina Stewart APRN Procedure: IUD removal and insertion Consent obtained by patient, parent, or legal power of business attorney - including discussion of procedure risks and [...] Good hemostasis at allis site. - Lot [id number] Exp August 2026 [facility] [phone] us Pina Stewart APRN IN CLINIC/BEDSIDE ORDERABLES Final Result documented in this encounter Visit Diagnoses Diagnosis Encounter for IUD removal and reinsertion- Primary Encounter for IUD removal and reinsertion- Primary documented in this encounter Additional Health Concerns Assessment Noted Time PHQ-9 Depression Total Score: 0 05/24/19 10:57 AM EST A fall risk assessment has been complete d for the patient 05/10/2024 11:31 AM EST A Body Mass Index follow-up plan has been documented for the patient 06/14/2024 11:25 AM EDT documented as of this encounter Care Teams Forester Aide Relationship Specialty Start Date End Date Karen Lopez APRN [address] [address] PCP - General Family Medicine 09/05/24 documented as of this encounter
--- OUTSIDE RECORDS SUMMARY | 2024-11-02 10:16 | XMS_ITS | Clinical Summary ---
Author Organization [facility] Address [address] [place] [address] Care Team Providers Care Green Plumber Name Role Phone Karen Lopez APRN Primary Care Provider [phone] Allergies No known active allergies Medications * This document contains information received from the source organization and may not represent a complete record from that organization. levonorgestrel (Mirena, 52 MG,) 20 MCG/24HR IUD 1 each by Intrauterine route 1 (one) time. 02/06/20 18 Active cyanocobalamin (Vitamin B-12) 1000 MCG tablet Take 1 tablet (1,000 mcg) by mouth in the morning. 01/05/20 22 Active Multiple Vitamins-Minerals (Womens Multivitamin) tablet Take 1 tablet by mouth in the morning. 01/05/20 22 Active [place]-3 Fatty Acids (Fish Oil) 1200 MG capsule delayed-release Take 1 tablet by mouth in the morning. 01/05/20 22 Active ascorbic acid (Vitamin C) 500 MG tablet Take 2 tablets (1,000 mg) by mouth in the morning. 05/07/19 23 Active cholecalciferol (Vitamin D-3) 50 MCG (2000 UT) capsuleIndications :Vitamin D deficiency Take 1 capsule (2,000 Units) by mouth 1 (one) time each day. 90 capsule 2 09/09/19 24 Active magnesium oxide (Mag-Ox) 400 (240 Mg) MG tablet Take 1 tablet (400 mg) by mouth in the morning. Active zinc sulfate (Zincate) 220 (50 Zn) MG capsule Take 1 capsule (220 mg) by mouth in the morning. Active acetaminophen (Tylenol) 500 MG tablet Take 2 tablets (1,000 mg) by mouth every 8 (eight) hours. 100 tablet 1 03/02/20 24 Active fluticasone (Flonase) 50 MCG/ACT nasal sprayIndications:U pper respiratory tract infection, unspecified type Administer 1 spray into each nostril 1 (one) time each day. Shake gently. Before first use, prime pump. After use, clean tip and replace cap. 16 g 12 03/08/20 24 Active ondansetron ODT (Zofran-ODT) 4 MG disintegrating tabletIndications: Vomiting and diarrhea Take 1 tablet (4 mg) by mouth every 8 hours as needed for nausea or vomiting. 20 tablet 06/15/19 25 Active sertraline (Zoloft) 100 MG tabletIndications: Recurrent major depressive disorder, in partial remission (CMS/HCC) Take 1 tablet by mouth daily. 90 tablet 3 11/02/19 25 026 Active valACYclovir (Valtrex) 500 MG tabletIndications: Recurrent cold sores Take 1 tablet by mouth daily. 90 tablet 3 11/02/19 25 026 Active sertraline (Zoloft) 100 MG tabletIndications: Recurrent major depressive disorder, in partial remission (CMS/HCC) Take 1 tablet by mouth daily. 90 tablet 3 07/02/19 25 025 Discontin ued(Reord er) valACYclovir (Valtrex) 500 MG tabletIndications: Recurrent cold sores Take 1 tablet by mouth daily. 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 Localized swelling, mass and lump, neck 11/02/19 24 Morbid (severe) obesity due to excess calories 0 09/08/2023 Myalgia, unspecified site 09/08/2023 Acute upper respiratory infection, unspecified 0 06/12/2023 Regular astigmatism, bilateral 04/13/2023 Umbilical hernia without obstruction or gangrene 04/02/2023 Ventral hernia without obstruction or gangrene 1 05/13/2022 Elevated white blood cell count, unspecified 08/2022 Nontoxic goiter, unspecified 03/10/2023 Abnormal levels of other serum enzymes Mixed hyperlipidemia 12/22/2022 Prediabetes 12/22/2022 Morbid obesity with BMI of 50.0-59.9, adult 02/04 Recurrent umbilical hernia 11/09/2019 Obstructive sleep apnea (adult) (pediatric) 07/2019 Snoring 10/24/2019 Weight gain 11/22/2018 Depression 12/14/2017 Resolved Problems Problem Noted Date Diagnosed Date Resolved Date Thyroglossal duct cyst 03/01/202403/02 Other chest pain 05/14/2023 04/18/2024 Enlarged thyroid 11/22/2018 12/22/2022 Encounters Date Type Department Care Team Description 11/01/2024 Orders Only [facility] [address], [address] [place] [address] Karen Lopez, BRAZE OPERATOR Recurrent major depressive disorder, in partial remission ([facility]); Recurrent cold sores 10/14/2024 2:30 PM EDT Office Visit Medical [facility] Ob[facility] Gynecology [address], [address] [place] [address] Pina Stewart, BRAZE OPERATOR Encounter for IUD removal and reinsertion (Primary Dx) 10/14/2024 Travel 10/13/2024 Travel 10/06/2024 Orders Only [facility] [address], [address] [place] [address] Tori Amaya Encounter for IUD removal and reinsertion (Primary Dx) 10/06/2024 Telephone Medical Office [facility] Obstetrics and Gynecology [address], [address] [place] [address] Tori Amaya 09/29/2024 Orders Only [facility] [address], [address] [place] [address] Karen Lopez APRN Chronic pain of left ankle (Primary Dx) 09/16/2024 Education [facility] [address] [place] [address] Yakelin Damon, RN 09/05/2024 8:00 AM EDT Office Visit [facility] Otolaryngology [address] [place] [address] Basil Diaz MD Thyroglossal duct cyst (Primary Dx); Abnormal ultrasound of neck 09/02/2024 Travel 09/02/2024 Telephone [facility] [address] [place] [address] Zoe Watt 09/01/2024 10:28 AM EDT - 09/01/2024 11:59 PM EDT Hospital Encounter [facility] [address] [place] [address] Thyroglossal duct cyst Discharge Disposition: Home or Self Care 09/01/2024 Travel 08/31/2024 Travel 08/17/2024 Travel from Last 3 Months Immunizations Immunization Administration Dates Next Due Hep A, Unspecified 02/12/2018 Hep B, adult 05/02/2019, 5,1993,1993 Influenza, Unspecified 12/19/2019,02/04/2019,04/2016 Influenza, injectable, quadrivalent 02/04/2016 Influenza, injectable, quadr ivalent, preservative free 12/26/2022,01/17/2022,01/10/2021 Influenza, seasonal, injecta ble, preservative free 12/29/2023 MMR 04/27/1997,07/17/1994 Patients Know Best-[employer] COVID-19 Vac cine (Purple Cap) 12+ 02/08/2021,01/15/2021 Tdap 05/30/2014 Varicella 07/18/1999 Family History Medical History Relation Name Comments Diabetes Father Rob Avery Hypertension Father Rob Avery Stroke Father Rob Avery Cancer Father's Brother Prostate cancer Heart disease Maternal Grandfather Ray Juan Jose Depression Maternal Grandmother Ly [place] Glaucoma Maternal Grandmother [place] Heart disease Maternal Grandmother [place] Hypertension Mother Malgorzata Rheum arthritis Mother Malgorzata Rheumatologic disease Mother Malgorzata Cancer Mother's Brother Stomach cancer Depression Mother's Sister Marya Jenkins Anxiety disorder Other 1 Cardiac disorder Other 2 Depression Other 3 [place] Diabetes Other 4 Rob Avery Endometriosis Other 5 Hypertension Other 6 Stomach cancer Other 7 Hyperlipidemia Other 8 Diabetes Paternal Grandmother Bri Avery Depression Sister 1 July Avery Depression Sister 2 Guillermina Janie Anesthesia problems Neg Hx Relation Name Status Comments Father Rob Avery Father's Brother Prostate cancer Maternal Grandfather Ray Juan Jose Maternal Grandmother Ly [place] Mother Malgorzata Alive Mother's Brother Stomach cancer Mother's Sister Marya Jenkins Other 1 Other 2 Other 3 Ly [place] Other 4 Rob Avery Other 5 Other 6 Other 7 Other 8 Paternal Grandmother Bri Avery Sister 1 July Avery Alive Sister 2 Guillermina Janie Alive Social History Tobacco Use Types Packs/Day Years [...] place to sleep or slept in a usp (including now)? No 09/07/2023 PHQ-9 Answer Date [...] any time in the past [address] [facility], were you homeless or living in a usp (including now)? No 05/05/2024 CAGE ASSESSMENT Answer [...] drink first t jack in the morning (EYE-MANAGER SOLAR) to steady your nerves or to get [...] Orientation Straight 04/09/2021 1: 19 PM EST Last Filed Vital Signs Vital Sign Reading [...] Mass Index 55.36 10/14/2024 1:06 PM EDT Plan of Treatment Upcoming Encounters Date Type Department Care Team (Late st Contact Info) Description 11/28/2024 2:20 PM EDT Office Visit [facility] [address] [place] [address] Pastor Hill MD [address] [place] [address] 12/28/2024 11:00 AM EDT Office Visit [facility] Sleep Disorder Center [address] [place] [address] Eryn Doshi, BRAZE OPERATOR [address] [place] [phone] Health Maintenance Due Date Last Done Comments [facility]-Infant/Child/Adol SDOH Screenings 1993 HPV Vaccines (1 - 3-dose series) 2008 Dental Prophylaxis 10/30/2023 04/30/2023, 11/30/2019 Dental X-Ray: Bitewings 02/15/2024 02/13/2023, 11/29 Dental Oral Exam 03/26/2024 09/24/2023, 02/13/2023 [facility]-DTaP,Tdap,and Td Vaccines (2 - Td or Tdap) 05/30/2024 05/30/2014 [facility]-Diabetes: Hemoglobin A1C 09/07/2024 09/08/2023, 09/11/2022, 01/27/2022 [facility]- SDOH Screenings 11/02/2024 [facility]-Adult SDOH Screenings 11/02/2024 05/05/2024 [facility]-Influenza Vaccine (#1) 12/05/202412/28, 12/26/2022, 01/17/2022, Additional history exists [facility]-Depression Screening 10/14/2025 10/14/2024, 10/04 Dental X-Ray: Full Mouth 09/24/2026 09/24/2023 [facility]-Pap Smear 04/18/2027 04/18/2024, 01/04, 09/05/2021 [facility]-Cervical Cancer Screening 04/18/2029 [facility]-HPV/Cotest 04/18/2029 04/18/2024, 01/04, 09/05/2021 [facility]-Zoster Vaccines (1 of 2) 2043 07/18/1999 [facility]-Varicella Vaccines Discontinued 07/18/1999 [facility]-Hepatitis A Vaccines Aged Out 02/12/2018 No longer eligible based on patient's age to complete this topic [facility]-Hepatitis B Vaccines Completed 020, 05/21/1994, 1993, Additional history exists [id number] Vaccine Discontinued 02/08/2021, 01/16/20 21 [facility]-HIV Screening Completed 03/12/2023, 09/05/2021 [facility]-Hepatitis C Screening Completed 03/12/2023, 05/2021 [facility]-Obesity Intervention Completed 025, 06/14/2024, 05/24/2024, Additional history exists [facility]-HIB Vaccines Aged Out No longer e ligible based on patient's age to complete this topic [facility]-IPV Vaccines Aged Out No longer e ligible based on patient's age to complete this topic [facility]-Pneumococcal Vaccine: Pediatrics (0 to 5 Years) and At-Risk Patients (6 to 49 Years) Aged Out No longer eligible based on patient's age to complete this topic [facility]-Rotavirus Vaccines Aged Out No lo nger eligible based on patient's age to complete this topic Procedures Procedure Name Priority Date/Time Associated Diagnosis Comments IN REMOVE INTRAUTERINE DEVICE Routine 10/14/2024 1:56 PM EDT Encounter for IUD removal and reinsertion IN INSERT INTRAUTERINE DEVICE Routine 10/14/2024 1:56 PM EDT Encounter for IUD removal and reinsertion POCT , URINE Routine 10/14/2024 1:13 PM EDT Encounter for IUD removal and reinsertion CT SOFT TISSUE NECK W IV CONTRAST Routine 09/01/2024 10:58 AM EDT Thyroglossal duct cyst PAP TEST - CYTOLOGY Routine 04/18/2024 1 :57 PM EST Well woman exam Encounter for Papanicolaou smear of cervix PANORAMIC RADIOGRAPHIC IMAGE Routine 09/24/2023 1:45 PM EDT Caries PERIODIC ORAL EVALUATION - ESTABLISHED PATIENT Routine 09/24/2023 1:45 PM EDT Caries HEMOGLOBIN A1C Routine 09/08/2023 11:40 AM EDT Encounter for medical examination to establish care PROPHYLAXIS - ADULT Routine 04/30/2023 3 :00 PM EST Dental plaque HEPATITIS C ANTIBODY - ED W/REFLEX TO HCV QUANT PCR STAT 03/12/2023 7:54 AM EST ED HIV 1/2 ANTIBODY/ANTIGEN SCREEN WITH REFLEX TO HIV I/II DIFFERENTIATION STAT 03/12/2023 7:54 AM EST BITEWINGS - 4 RADIOGRAPHIC IMAGES Routine 02/13/2023 4:00 PM EST Encounter for dental exam and cleaning w/o abnormal findings from Last 3 Months or Most Recently Relevant to Health Maintenance Results * IN INSERT INTRAUTERINE DEVICE, IN REMOVE INTRAUTERINE DEVICE (10/14/2024 1:56 PM EDT) Narrative Pina Stewart APRN - 10/14/2024 1:56 PM EDT Pina Stewart APRN 10/14/2024 2:02 PM Insert IUD Date/Time: 10/14/2024 1:56 PM Performed by: Pina Stewart APRN Authorized by: Pina Stewart APRN Procedure: IUD removal and insertion Consent obtained by patient, parent, or legal power of assistant county attorney - including discussion of procedure risks [...] Good hemostasis at allis site. - Lot [id number] Exp August 2026 [facility] 12657-626-58 Pina Stewart APRN IN CLINIC/BEDSIDE ORDERABLES Final [...] 10/14/2024 1:13 PM EDT us Pina Stewart BRAZE OPERATOR POINT OF CARE TEST ENTER/EDIT ORDERABLES Final Result * CT Soft Tissue Neck w IV Contrast (09/01/2024 10:58 AM EDT) Anatomical Region Laterality Modality Neck Computed Tomogra phy Impressions 09/01/2024 11:38 AM EDT Postsurgical changes of thyroglossal duct cyst resection without evidence of residual or recurrent cyst. CRITICAL RESULT: No. COMMUNICATION: Per this written report. Drafted by Dewey Boss MD on 09/01/2024 11:29 AM Final report signed by Dewey Boss MD on 09/01/2024 11:38 AM Narrative 09/01/2024 11:38 AM EDT CLINICAL INDICATION: Soft tissue infection suspected, neck, no prior imaging TECHNIQUE: Helical images were obtained through the neck, and reconstructed in the axial plane on bone and soft tissue algorithm at multiple slice thicknesses. Coronal and sagittal reformatted images were created. 100 mL of Omnipaque 300 were administered intravenously. Total DLP (Dose-Length Product): 502.02 mGy.cm. Please note: The reported value represents the total of one or more individual components during the CT acquisition on this date and at this time, and as such, the same value may appear in more than one CT report depending on the interpreting/reporting physicians. COMPARISON: Neck CT 11/10/2023 FINDINGS: Diagnostic Quality: Adequate. Soft Tissues: No masses are present within the soft tissues of the neck. Lymph Nodes: No significant cervical adenopathy is present. Pharynx/Larynx: No definite pharyngeal or laryngeal masses are present. Oral Cavity: No large masses are present within the oral cavity within the limitations of the study. Parapharyngeal Space: No lesions are present within the parapharyngeal space. Salivary Glands: The parotid and submandibular glands are normal in size without definite focal lesions. Thyroid: Postsurgical changes of resection of thyroglossal duct cyst. No evidence of residual stenosis at the surgical bed. No focal thyroid lesions are present, within the limitations of the study. Orbits/Paranasal Sinuses/Skull Base/Posterior Fossa: No orbital masses are present within the visualized portions of the orbits. Mucosal thickening in the right maxillary sinus, ethmoid air cells and sphenoid sinus. Within the skull base, there is no focal lesion or destructive process. No abnormality is identified within the posterior fossa. Bones/Spine: No bony destructive lesion is present. Thoracic Inlet and Lung Apices: Within the limitations of the study, no large masses are present at the thoracic inlet. The lung apices are grossly clear. Other Findings: None. Procedure Note Dewey Boss MD - 09/01/2024 CLINICAL INDICATION: Soft tissue infection suspected, neck, no prior imaging TECHNIQUE: Helical images were obtained through the neck, and reconstructed in theaxial plane on bone and soft tissue algorithm at multiple slicethicknesses. Coronal and sagittal reformatted images were created. 100 mLof Omnipaque 300 were administered intravenously. Total DLP (Dose-Length Product): 502.02 mGy.cm. Please note: The reportedvalue represents the total of one or more individual components during theCT acquisition on this date and at this time, and as such, the same valuemay appear in more than one CT report depending on theinterpreting/reporting physicians. COMPARISON: Neck CT 11/10/2023 FINDINGS: Diagnostic Quality: Adequate. Soft Tissues: No masses are present within the soft tissues of the neck. Lymph Nodes: No significant cervical adenopathy is present. Pharynx/Larynx: No definite pharyngeal or laryngeal masses are present. Oral Cavity: No large masses are present within the oral cavity within thelimitations of the study. Parapharyngeal Space: No lesions are present within the parapharyngealspace. Salivary Glands: The parotid and submandibular glands are normal in sizewithout definite focal lesions. Thyroid: Postsurgical changes of resection of thyroglossal duct cyst. Noevidence of residual stenosis at the surgical bed. No focal thyroidlesions are present, within the limitations of the study. Orbits/Paranasal Sinuses/Skull Base/Posterior Fossa: No orbital masses arepresent within the visualized portions of the orbits. Mucosal thickeningin the right maxillary sinus, ethmoid air cells and sphenoid sinus. Withinthe skull base, there is no focal lesion or destructive process. Noabnormality is identified within the posterior fossa. Bones/Spine: No bony destructive lesion is present. Thoracic Inlet and Lung Apices: Within the limitations of the study, nolarge masses are present at the thoracic inlet. The lung apices aregrossly clear. Other Findings: None. IMPRESSION: Postsurgical changes of thyroglossal duct cyst resection without evidenceof residual or recurrent cyst. CRITICAL RESULT: No. COMMUNICATION: Per this written report. Drafted by Dewey Boss MD on 09/01/2024 11:29 AM Final report signed by Dewey Boss MD on 09/01/2024 11:38 AM Basil Diaz MD IMG CT PROCEDURES Final Result * Pap Test (04/18/2024 1:57 PM EST) Case Report Cytology Case: [id number] Authorizing Provider: Pina Stewart APRN Collected: 04/18/2024 1357 Ordering Location: Medical Office Building Received: 04/18/2024 1357 Obstetrics and Gynecology First Screen: Karen Montero Rescreen: Juanita Franks Specimen: ThinPrep Pap Test, Liquid-Based Cervical/Vaginal 04/21/2024 4:27 PM EST [facility] Interpretation NEGATIVE FOR INTRAEPITHELIAL LESION OR MALIGNANCY 04/21/2024 4:27 PM EST [facility] at 1627 EST Specimen Adequacy Satisfactory for evaluation; endocervical/boston sformation zone component present. Slide scanned and imaged by ThinPrep Imaging System with manual review of all selected leija. 04/21/2024 4:27 PM EST [facility] Cervical cytology is a screening test primarily for squamous cancers and precursors and has associated false negative and positive results. New technologies such as liquid based sampling may decrease but will not eliminate all false negative results. Regular screening and follow-up of unexplained clinical signs and symptoms are recommended to minimize false negative results. Please see the ASCCP website (www.asccp.org)fo r followup recommendations. If HPV testing was requested, correlation with the results is suggested (please call Microbiology at [phone] for results). 04/21/2024 4:27 PM EST [facility] Menstrual Status Not Applicable 04/06 4:27 PM EST [facility] Contraceptive History Intrauterine device 04/21/2024 4:27 PM EST [facility] Screening Type Routine Screen 2024 4:27 PM EST [facility] High Risk? No 04/21/2024 4:27 PM EST [facility] HPV Testing Requested? Request HPV Testing Regardless of Pap Test Findings 04/21/2024 4:27 PM EST [facility] Previous Cancer History No 04/21/2024 4:27 PM EST [facility] Clinical Information Z01.419 - Well woman exam [ICD-10-CM] Z12.4 - Encounter for Papanicolaou smear of cervix [ICD-10-CM] 04/21/2024 4:27 PM EST [facility] Swab Vaginal and cervical cytologic material / Unknown Non-blood Collection / Unknown 04/18/2024 1:57 PM EST 04/18/2024 1:57 PM EST us Pina Stewart BRAZE OPERATOR LAB CYTOLOGY ORDERABLES Final Result Performing Organization Address City/State/[facility] Co de Phone Number [facility] [address] [place] [address] * Hemoglobin A1c (09/08/2023 11:40 AM EDT) Hemoglobin A1c 5.0 <5.7 % 09/08/2023 9:38 PM EDT [facility] Blood Venous blood specimen / Unknown Venipuncture / Unknown 09/08/2023 11:40 AM EDT 09/08/2023 11:41 AM EDT Narrative [facility] - 09/08/2023 9:38 PM EDT HA1C Interpretive Data: Diagnosis of Diabetes: Diabetic > or = 6.5% Pre-diabetic 5.7 to 6.4% Non-diabetic < or = 5.6% Glycemic Targets for Type I and Type II Diabetics: Non- Adults <7.0% Adults <6.0% Children and Adolescents <7.5% Source: [place] [employer]. Standards of medical care in diabetes,2017. Diabetes Care.2017:40 (suppl 1):S1-S135. HbA1c assay performed by an ion-exchange chromatography method that is certified traceable to the DCCT. us Cesar Yee APRN LAB BLOOD ORDERABLES Final Result Performing Organization Address City/[facility]/ZIP Co de Phone Number [facility] [address] [place] [address] * ED HIV 1/2 Antibody/Antigen Screen w/Reflex to HIV 1/2 Differentiation (03/12/2023 7:54 AM EST) HIV 1 & 2 Antibody/Antigen Screen Non Reactive Non Reactive 03/12/2023 8:52 AM EST [facility] Comment:Screening for HIV 1 & 2 antibodies, and P24 antigen is NONREACTIVE. No confirmatory testing is required. Blood Venous blood specimen / Unknown Venipuncture / Unknown 03/12/2023 7:54 AM EST 03/12/2023 8:08 AM EST us Juan Khan MD LAB BLOOD ORDERABLES Fin al Result Performing Organization Address City/[facility] Co de Phone Number [facility] [address] [place] [address] * Hepatitis C Antibody - ED (03/12/2023 7:54 AM EST) Hepatitis C Antibody Negative Negative 03/12/2023 8:51 AM EST [facility] Blood Venous blood specimen / Unknown Venipuncture / Unknown 03/12/2023 7:54 AM EST 03/12/2023 8:09 AM EST Juan Khan MD LAB BLOOD ORDERABLES Fin al Result Performing Organization Address City/[facility] Co de Phone Number [facility] [address] [place] [address] from Last 3 Months or Most Recently Relevant to Health Maintenance [facility] D[facility]AL C[facility] Member Subscriber Plan / Payer (Ef fective 2022-Present) Name:Huber Averyelle Relation to Subscriber:Self Name:Huber Avery Payer ID:Not on file Group ID:. Type:Indemnity Address: [address] [place] [address] [place] [address] [facility] MEDICAID DENTAL Advance Directives * Full Code (Latest Code Status on File) Date Activated Date Inactivated Comments 03/01/2024 1:07 PM 03/02/2024 4:56 PM Question Answer Comments Patient has decision-making capacity? Yes Care Teams Green Plumber Relationship Specialty Start Date End Date Karen Lopez APRN [address] [place] [address] PCP - General Family Medicine 09/05/24
--- OUTSIDE RECORDS SUMMARY | 2024-11-02 10:17 | XMS_ITS | Encounter Summary ---
Author Organization Healthcare Address [address] [place] [address] Care Team Providers Care Batch Mixer Operator Name Role Phone Karen Lopez APRN Primary Care Provider [phone] Reason for Visit * Reason Comments Pre-Visit Review Encounter Details Date Type Department Care Team (Late st Contact Info) Description 09/16/2024 Education [facility] [address] [place] [address] Yakelin Damon, RN [facility] Social History Tobacco Use Types Packs/Day Years [...] place to sleep or slept in a halfway (including now)? No 09/07/2023 PHQ-9 Answer Date [...] any time in the past 12 m [facility], were you homeless or living in a halfway (including now)? No 05/05/2024 CAGE ASSESSMENT Answer [...] drink first t jack in the morning (EYE-BROADCAST DIRECTOR OPERATIONS) to steady your nerves or to get [...] as of this encounter Miscellaneous Notes * Clinician Note - Yakelin Damon RN - 09/16/2024 12:05 PM EDT Attempted to contact patient for Pre-Visit Review, however unable to reach.. Additional information: N/A Yakelin Damon RN Pharmacy Patient Support Services Clinic: [facility]. documented in this encounter Plan of Treatment Upcoming Encounters Date Type Department Care Team (Late st Contact Info) Description 11/28/2024 2:20 PM EDT Office Visit [facility] Internal Medicine [address] [place] [phone] Pastor Hill MD [address] [place] [address] 12/28/2024 11:00 AM EDT Office Visit [facility] Sleep Disorder Center [address] [place] [address] Eryn Doshi APRN [address] [place] [address] documented as of this encounter [...] documented as of this encounter Care Teams Batch Mixer Operator Relationship Specialty Start Date End Date Karen Lopez APRN [address] [facility] [address] [place] [address] PCP - General Family Medicine 09/05/24 documented as of this encounter
--- OUTSIDE RECORDS SUMMARY | 2024-11-02 10:17 | XMS_ITS | Encounter Summary ---
Author Organization Healthcare Address [address] [place] [address] Care Team Providers Care Bed Control Specialist Name Role Phone Karen Lopez APRN Primary Care Provider Encounter Details Date Type Department Care Team (Late st Contact Info) Description 09/29/2024 Orders Only [facility] Medicine [address], [address] [place] [address] Karen Lopez APRN [address] [place] [address] Chronic pain of left ankle (Primary Dx) Social History Tobacco Use Types [...] place to sleep or slept in a half-way (including now)? No 09/07/2023 PHQ-9 Answer Date [...] any time in the past 12 m [facility], were you homeless or living in a half-way (including now)? No 05/05/2024 CAGE ASSESSMENT Answer [...] drink first t jack in the morning (EYE-CLINICAL DIETICIAN) to steady your nerves or to get rid of a hangover? 0 08/07/2022 CAGE Questionnaire Score 0 023 Utilities Answer Date Recorded In the past 12 months has e electric, gas, oil, or water company [...] [facility] Internal Medicine [address] [place] [id number] Pastor Hill MD [address] [place] [phone] 12/28/2024 11:00 AM EDT Office Visit [facility] Sleep [facility] Center [address] [place] [address] Eryn Doshi APRN [address] [place] [address] Scheduled Orders Name Type Priority Associated Diagnoses Orde r Schedule XR Ankle Left 3+ Views Imaging Routine Chronic pain of left ankle Expected: 09/29/2024 (Approximate), Expires: 04/02/2026 documented as of this encounter Visit Diagnoses Diagnosis Chronic pain of left ankle- Primary documented in this encounter Additional Health Concerns Assessment Noted Time PHQ-9 Depression Total Score: 0 05/24/19 10:57 AM EST A fall risk assessment has been complete d for the patient 05/10/2024 11:31 AM EST A Body Mass Index follow-up plan has been documented for the patient 06/14/2024 11:25 AM EDT documented as of this encounter Care Teams Bed Control Specialist Relationship Specialty Start Date End Date Karen Lopez APRN [address] [address] PCP - General Family Medicine 09/05/24 documented as of this encounter
--- OUTSIDE RECORDS SUMMARY | 2024-11-02 10:17 | XMS_ITS | Encounter Summary ---
Author Organization [facility] Address [address] [place] [address] Care Team Providers Care Lucerne Farmer Name Role Phone Rosemarie Gaona APRN Primary Care Provider Karen Lopez MANAGER BALANCE Primary Care Provider Reason for Visit * Reason Comments Med Refill Encounter Details Date Type Department Care Team ([facility] Contact Info) Description 07/24/2024 Refill Medical Office Building Obstetrics and Gynecology [address], [address] [place] [address] Pina Stewart APRN [address] [place] [address] Recurrent cold sores Social History Tobacco Use [...] any time in the past 12 m [facility], were you homeless [...] drink first t jack in the morning (EYE-ORDER DISPATCHER) to steady your nerves or to get [...] Description 11/28/2024 2:20 PM EDT Office Visit [facility] Internal Medicine [address] [place] [phone] Pastor Hill MD [address] [place] [address] 12/28/2024 11:00 AM EDT Office Visit [facility] Sleep Disorder Center [address] [place] [address] Eryn Doshi APRN [address] [place] [address] documented as of this encounter Visit Diagnoses Diagnosis Recurrent cold sores Herpes simplex without mention [...] documented as of this encounter Care Teams Lucerne Farmer Relationship Specialty Start Date End Date Rosemarie Gaona APRN [address] [place] [address] PCP - General Family Medicine 07/03/24 09/04/24 Karen Lopez APRN [address] [place] [address] PCP - General Family Medicine 09/05/24 documented as of this encounter
[2024-11-02 10:20] LABS: COC Drug Screen Collection Only
[2024-11-03 08:42] LABS: Hep A Ab, Total Negative (Negative); Mumps Abs, IgG 50.7 AU/mL (Immune >10.9); Rubella Antibodies, IgG 4.34 index (Immune >0.99)
[2024-11-03 12:26] LABS: Measles Antibodies, IgG 16.1 AU/mL (Immune >16.4)
== END ==
LOC: LAB 10:13
CPT/HCPCS: 36415; 86480; 86706; 86708; 86735; 86762; 86765; 86787